=== PATIENT | female | born 1945 | race Two or more races ===

== ENCOUNTER 2021-12-31 18:42 | Emergency (ER) | payer MEDICARE, MEDICAID ==
[~2021-12-31] VITALS: Ht 149.9 cm; Wt 48.5 kg
[2021-12-31] MEDS ORDERED: ACETAMINOPHEN 500 MG TAB PO ONE (23:45)
[2022-01-01 00:50] VITALS: BP 155/90
== END 2022-01-01 00:50 | disposition home or self-care (01) ==
LOC: EDBD 18:42 → ER 18:46
DX: S01.01XA Laceration without foreign body of scalp, initial encounter (principal); R51.9 Headache, unspecified; V49.59XA Passenger injured in collision with other motor vehicles in traffic accident, initial encounter; Y93.89 Activity, other specified; Y92.89 Other specified places as the place of occurrence of the external cause; Y99.8 Other external cause status
CPT/HCPCS: 12002; 70450; 71250; 72125; 99284; J2001